=== PATIENT | female | born 1945 | race Caucasian/White ===

== ENCOUNTER → 2016-11-29 | Outpatient (CLI) | payer OTHER ==
[2016-11-29 16:42] LABS: ALBUMIN 3.6 gm/dL (3.5-5.0); ANION GAP 10.4 (10.0-19.0); CALCIUM 8.5 mg/dL (8.5-10.5); CREATININE 0.8 mg/dL (0.5-1.1); MAGNESIUM 2.1 mg/dL (1.8-2.6); PHOSPHORUS 3.8 mg/dL (2.5-4.9); POTASSIUM 4.4 mMol/L (3.7-5.1)
== END ==
LOC: LCNC 16:22
PROVIDERS: Internal Medicine Interventional Cardiology
DX: R00.2 Palpitations (principal)